=== PATIENT | female | born 1965 ===

== ENCOUNTER → 2023-11-16 07:30 | Day surgery (SDC) | payer BC, SELFPAY | LOC: GI 07:30 | PROVIDERS: ATTENDING PHYSICIAN Internal Medicine Gastroenterology | DX: Z12.11 Encounter for screening for malignant neoplasm of colon (principal); Z86.010 Personal history of colon polyps; K64.8 Other hemorrhoids; K57.30 Diverticulosis of large intestine without perforation or abscess without bleeding; K62.1 Rectal polyp; D12.0 Benign neoplasm of cecum | CPT/HCPCS: 45380; 88305 ==